=== PATIENT | female | born 2005 | race Caucasian/White ===

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

== ENCOUNTER 2023-06-03 19:21 | Emergency (ER) | payer BC, SELFPAY ==
[2023-06-03 19:30] VITALS: BP 140/93; PULSE 81; RESP 20; TEMP 37.1; O2SAT 97; BMI 24.8
--- NOTE | 2023-06-03 19:43 | EXP.UTC ---
Discharge Plan Disposition Patient Disposition: Home, Self-Care Condition: Good Prescriptions Prescriptions: New azithromycin [Zithromax Z-Rohan] 250 mg tablet See Rx Instructions .ROUTE .COMPLEX 5 Days Qty: 6 0RF Rx Instructions: For 250 mg dose pack: take 500 mg today (day 1), then 250 mg for 4 days (days 2-5) methylprednisolone [Medrol (Rohan)] 4 mg tablets,dose pack See Rx Instructions .Route .COMPLEX 6 Days Qty: 21 0RF Rx Instructions: taper pack; No Action medroxyprogesterone 150 mg/mL suspension 1 mg IM ONCE Patient Comments: INJECT 1 ML INTRAMUSCULARLY EVERY 3 MONTHS FOR 90 DAYS Referrals Follow up/Referrals: Chris Keene [Primary Care Provider] - See instructions Activity Restrictions/Add. Instructions Additional Instructions/Restrictions: *Monitor Temp, Over the counter Motrin or Tylenol as directed/as needed Tylenol every 4 hours and Motrin every 6 hours (as long as your family doctor has told you that you can take it) for fever or pain. and straight to ER if unable to lower temp less than 101.0 after medication given *Warm salt water gargles may help to soothe the throat *Throat Lozenges? *Warm fluids like tea with honey may help to soothe the throat? *Sleep elevated *Humidifier/Vaporizer Take medication as prescribed Your throat swab was sent for culture. Those results are typically sent to your primary care. Be sure to follow up in 2-3 days with your family doctor/primary care physician if no improvement so they can review those result and treat if necessary. If you don?t have a primary care doctor, I recommend you get one but in the mean time, you will have to return to a walk in clinic Follow up IMMEDIATELY for new or worsening symptoms or no Noticeable improvement over the next 48-72 hours. 911 for difficulty breathing or swallowing Clinical Impressions Clinical Impression: Pharyngitis Qualifiers: Pharyngitis/tonsillitis etiology: unspecified etiology Qualified Code(s): J02.9 - Acute pharyngitis, unspecified Instructions Patient Instructions: Sore Throat, DI for Headache Discharge ED Provider: Vika Stovall [facility] General Stated complaint: sore throat Mode of Arrival: Ambulatory Source of Information: Patient Limitations: No Limitations Time Seen by Provider: 06/03/23 19:43 Description of Symptoms (Recalled from Triage Doc. by RN): PATIENT C/O SORE THROAT, BODY ACHES, LOSING VOICE, SWOLLEN THROAT THAT STARTED LAST SUNDAY HEENT Symptoms (Recalled from RN notes): Yes Resp Symptoms (Recalled from RN notes): No Skin Symptoms (Recalled from RN notes): No MS Symptoms (Recalled from RN notes): No Functional Status (Recalled from RN notes): WNL History of Present Illness Provider Complaint: Patient states that she started getting sick last week and has continued to get worse States that her throat is very sore, hurts when she swallows, swollen lymph nodes body aches and loss her voice State that today she was feeling worse so she came in to get checked Related Data Home Medications Medication Instructions Recorded Confirmed medroxyprogesterone 150 mg/mL 1 mg IM ONCE Control 06/03/23 06/03/23 intramuscular suspension Previous Rx's Medication Instructions Recorded azithromycin 250 mg tablet See Rx Instructions PO .COMPLEX 5 06/03/23 (Zithromax Z-Rohan) days #6 tabs methylprednisolone 4 mg tablets in See Rx Instructions .Route 06/03/23 a dose pack (Medrol (Rohan)) .COMPLEX 6 days #21 tabs Allergies Allergy/AdvReac Type Severity Reaction Status Date / Time No Known Allergies Allergy Verified 11/03/19 16:28 Worker's Comp Is this a Worker's Comp case?: No [facility] Disclaimer: The information contained in this section may have been updated after the patient was seen, as this information can be updated by other users. Medical History (Updated 06/03/23 @ 20:10 by Vika Stovall APRN) Maria C
[2023-06-03 20:03] LABS: UTC Influenza A Antigen Negative (Negative)
[2023-06-03 20:04] LABS: UTC Influenza B Antigen Negative (Negative)
[2023-06-03 20:04] LABS: UTC Strep Screen (Rapid) Negative (Negative)
[2023-06-03 20:04] LABS: Monoscreen (Rapid) Negative (Negative)
[2023-06-03 20:10] VITALS: BP 140/93; PULSE 81; RESP 20; TEMP 37.1; O2SAT 97
== END 2023-06-03 20:12 | disposition home or self-care (01) ==
PROVIDERS: Emergency Provider Nurse Practitioner; PCP Pediatrics
DX: J02.9 Acute pharyngitis, unspecified (principal); F41.9 Anxiety disorder, unspecified
CPT/HCPCS: 86318; 87804; 87880; 99212; 99214; G0463

== ENCOUNTER 2023-07-08 18:18 | Emergency (ER) | payer BC, SELFPAY ==
[2023-07-08 18:19] VITALS: BP 141/85; PULSE 94; RESP 18; TEMP 37.4; O2SAT 98; BMI 24.7
--- NOTE | 2023-07-08 18:27 | EXP.UTC ---
Discharge Plan Disposition Patient Disposition: Home, Self-Care Condition: Good Prescriptions Prescriptions: New chhewbrrvmpnfgp-ewfpvztkb-SC [Bromfed DM] 2-30-10 mg/5 mL Syrup 5 ml PO Q6H PRN (Reason: Cough) Qty: 240 0RF ondansetron 4 mg Tablet,Disintegrating 4 mg PO Q8H PRN (Reason: Nausea) Qty: 12 0RF No Action medroxyprogesterone 150 mg/mL suspension 1 mg IM ONCE Patient Comments: INJECT 1 ML INTRAMUSCULARLY EVERY 3 MONTHS FOR 90 DAYS azithromycin [Zithromax Z-Rohan] 250 mg tablet See Rx Instructions .ROUTE .COMPLEX 5 Days Qty: 6 0RF Rx Instructions: For 250 mg dose pack: take 500 mg today (day 1), then 250 mg for 4 days (days 2-5) methylprednisolone [Medrol (Rohan)] 4 mg tablets,dose pack See Rx Instructions .Route .COMPLEX 6 Days Qty: 21 0RF Rx Instructions: taper pack; Referrals Follow up/Referrals: Chris Keene [Primary Care Provider] - See instructions Clinical Impressions Clinical Impression: COVID-19 Stand Alone Forms Stand Alone Forms: Work/School Release Instructions Patient Instructions: Coronavirus Disease 2019, Preventing the Spread of Coronavirus Discharge Instructions Discharge ED Provider: Noe Adams [facility] General Stated complaint: test positive @ home, cough, weakness, congestion Time Seen by Provider: 07/08/23 18:27 History of Present Illness Provider Complaint: She is here to have a pcr covid-19 test. She had a positive home covid-19 test today. She states that she started feeling bad yesterday. She denies any shortness of breath. Related Data Home Medications Medication Instructions Recorded Confirmed medroxyprogesterone 150 mg/mL 1 mg IM ONCE Control 06/03/23 06/03/23 intramuscular suspension Previous Rx's Medication Instructions Recorded azithromycin 250 mg tablet See Rx Instructions PO .COMPLEX 5 06/03/23 (Zithromax Z-Rohan) days #6 tabs methylprednisolone 4 mg tablets in See Rx Instructions .Route 06/03/23 a dose pack (Medrol (Rohan)) .COMPLEX 6 days #21 tabs fuybnzjqfmhcwid-bogmepodnbdbwav-KZ 5 ml PO Q6H PRN Cough #240 mL 07/08/23 2 mg-30 mg-10 mg/5 mL oral syrup (Bromfed DM) ondansetron 4 mg disintegrating 4 mg PO Q8H PRN Nausea #12 tabs 07/08/23 tablet Allergies Allergy/AdvReac Type Severity Reaction Status Date / Time No Known Allergies Allergy Verified 07/08/23 18:30 [facility] Disclaimer: The information contained in this section may have been updated after the patient was seen, as this information can be updated by other users. Medical History (Updated 07/08/23 @ 18:52 by Noe Adams APRN) Anxiety Social History Smoking Status: Never smoker alcohol intake: never current occupational status: student Travel in the last 8 weeks: None household members: family housing: house ROS Obtained: Yes All systems reviewed & no additional complaints except as documented Constitutional Constitutional: Reports chills and Reports fever(s) Eyes Eyes: Denies eye discharge ENT Ears, Nose, Mouth, and Throat: Reports as per HPI Cardiovascular Cardiovascular: Denies chest pain Respiratory Respiratory: Denies chest congestion and Reports cough Gastrointestinal Gastrointestingal: Reports nausea; Denies abdominal pain, constipation, cramping, diarrhea or vomiting Musculoskeletal Musculoskeletal: Denies arthralgias Integumentary/Breasts Skin/Breast: Denies rash Neurologic Neurologic: Denies paresthesias Physical Exam General General appearance: alert and in no apparent distress Head Head exam: atraumatic, normocephalic and normal inspection Eye Eye exam: Present normal appearance, PERRL and EOMI ENT ENT exam: Present normal exam, normal oropharynx, mucous membranes moist, TM's normal bilaterally and normal external ear exam Neck Neck exam: Present normal inspection, full ROM and trachea midline; Absent meningismus or lymphaden
[2023-07-08 18:56] VITALS: BP 141/85; PULSE 94; RESP 18; TEMP 37.4; O2SAT 98
== END 2023-07-08 18:56 | disposition home or self-care (01) ==
PROVIDERS: Emergency Provider Nurse Practitioner Family; PCP Pediatrics
DX: U07.1 COVID-19 (principal); F41.9 Anxiety disorder, unspecified
CPT/HCPCS: 99212; 99214; G0463

== ENCOUNTER 2023-07-23 18:48 | Emergency (ER) | payer BC, SELFPAY ==
[2023-07-23 19:05] VITALS: BP 145/84; PULSE 80; RESP 18; TEMP 37.3; O2SAT 98; BMI 29.0
--- NOTE | 2023-07-23 19:18 | EXP.UTC ---
Discharge Plan Disposition Patient Disposition: Home, Self-Care Condition: Good Prescriptions Prescriptions: New ondansetron 4 mg tablet,disintegrating 4 mg PO Q8H PRN (Reason: nausea and vomiting) Qty: 10 0RF Referrals Follow up/Referrals: Chris Keene [Primary Care Provider] - See instructions Activity Restrictions/Add. Instructions Additional Instructions/Restrictions: Drink extra fluids with and between meals. If you have difficulty drinking, try very small amounts of water or suck on ice chips. ? Avoid fruit juices, as these do not replace minerals and can actually increase diarrhea. ? Children and adults can use sports drinks to replenish electrolytes. Younger children and infants should use products formulated for children, like oral rehydration solutions. ? Eat food in small amounts and let your stomach recover. ? Get lots of rest. You may feel tired or weak. ? No greasy or fried foods for the next 24-48 hours BRAT diet Bananas Rice Apples and [place] ? Make sure to drink plenty of liquids ? Return if needed ? Straight to ER if any life threatening symptoms ? Zofran as prescribed ? Follow up with family doctor in the next 48-72 hours if no improvement or any worsening of symptoms Clinical Impressions Clinical Impression: Nausea & vomiting Qualifiers: Vomiting type: unspecified Qualified Code(s): R11.2 - Nausea with vomiting, unspecified Stand Alone Forms Stand Alone Forms: Work/School Release Instructions Patient Instructions: Nausea and Vomiting-Adult, Ondansetron Discharge ED Provider: Vika Stovall [facility] General Stated complaint: nausea Mode of Arrival: Ambulatory Source of Information: Patient Limitations: No Limitations Time Seen by Provider: 07/23/23 19:19 Description of Symptoms (Recalled from Triage Doc. 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, strep and stomach bug States that this morning she woke feeling achy, chills and N/V States that this evening she wasnt feeling any better so she came in to get checked Related Data Previous Rx's Medication Instructions Recorded ondansetron 4 mg disintegrating 4 mg PO Q8H PRN nausea and 07/23/23 tablet vomiting #10 tabs Allergies Allergy/AdvReac Type Severity Reaction Status Date / Time No Known Allergies Allergy Verified 07/08/23 18:30 Worker's Comp Is this a Worker's Comp case?: No [facility] Disclaimer: The information contained in this section may have been updated after the patient was seen, as this information can be updated by other users. Medical History (Updated 07/23/23 @ 19:42 by Vika Stovall APRN) Anxiety Social History Smoking Status: Never smoker alcohol intake: never current occupational status: student Travel in the last 8 weeks: None household members: family housing: house ROS Obtained: Yes All systems reviewed & no additional complaints except as documented and Yes Systems reviewed as appropriate & no additional complaints except as documented Constitutional Constitutional: Reports system reviewed and no additional complaints, except as documented, Reports as per HPI, Reports body ache, Reports chills and Reports fever(s) ENT Ears, Nose, Mouth, and Throat: Reports system reviewed and no additional complaints, except as documented and Reports as per HPI Cardiovascular Cardiovascular: Reports system reviewed and no additional complaints, except as documented and Re
[2023-07-23 19:25] LABS: UTC Influenza A Antigen Negative (Negative)
[2023-07-23 19:25] LABS: UTC Pregnancy Test, Urine Negative (Negative)
[2023-07-23 19:26] LABS: UTC Influenza B Antigen Negative (Negative)
[2023-07-23 19:33] VITALS: BP 145/84; PULSE 80; RESP 18; TEMP 37.3; O2SAT 98
== END 2023-07-23 19:36 | disposition home or self-care (01) ==
PROVIDERS: Emergency Provider Nurse Practitioner; PCP Pediatrics
DX: R11.2 Nausea with vomiting, unspecified (principal); R50.9 Fever, unspecified; F41.9 Anxiety disorder, unspecified
CPT/HCPCS: 81025; 87804; 99212; 99214; G0463

== ENCOUNTER 2023-08-12 11:35 | Emergency (ER) | payer BC, SELFPAY ==
[2023-08-12 11:45] VITALS: BP 117/74; PULSE 85; RESP 18; TEMP 37; O2SAT 100; BMI 26.9
[2023-08-12 11:58] LABS: UTC Strep Screen (Rapid) Negative (Negative)
--- NOTE | 2023-08-12 12:04 | EXP.UTC ---
Discharge Plan Disposition Patient Disposition: Home, Self-Care Condition: Good Prescriptions Prescriptions: New pseudoephedrine HCl [Sudafed 12 Hour] 120 mg tablet extended release 120 mg PO Q12H PRN (Reason: nasal congestion) Qty: 20 0RF fluticasone propionate [Flonase Allergy Relief] 50 mcg/actuation spray,suspension 1 - 2 spray intranasal DAILY Qty: 16 0RF Rx Instructions: administer into each nostril daily Referrals Follow up/Referrals: Chris Keene [Primary Care Provider] - See instructions Activity Restrictions/Add. Instructions Additional Instructions/Restrictions: *Monitor Temp, Over the counter Motrin or Tylenol as directed/as needed Tylenol every 4 hours and Motrin every 6 hours (as long as your family doctor has told you that you can take it) for fever or pain. and straight to ER if unable to lower temp less than 101.0 after medication given *Warm salt water gargles may help to soothe the throat *Throat Lozenges? *Warm fluids like tea with honey may help to soothe the throat? *Sleep elevated *Humidifier/Vaporizer *Flonase 2 sprays in each nostril daily but be aware that it may take 2-3 days before you notice improvement Your throat swab was sent for culture. Those results are typically sent to your primary care. Be sure to follow up in 2-3 days with your family doctor/primary care physician if no improvement so they can review those result and treat if necessary. If you don?t have a primary care doctor, I recommend you get one but in the mean time, you will have to return to a walk in clinic Follow up IMMEDIATELY for new or worsening symptoms or no Noticeable improvement over the next 48-72 hours. 911 for difficulty breathing or swallowing Clinical Impressions Clinical Impression: URI (upper respiratory infection) Qualifiers: URI type: unspecified URI Qualified Code(s): J06.9 - Acute upper respiratory infection, unspecified Instructions Patient Instructions: Sore Throat, DI for Nasal Congestion Discharge ED Provider: Vika Stovall [facility] General Stated complaint: sore throat, h/a Mode of Arrival: Ambulatory Source of Information: Patient Limitations: No Limitations Time Seen by Provider: 08/12/23 12:04 Description of Symptoms (Recalled from Triage Doc. by RN): PATIENT STATES SHE WAS TREATED FOR STREP THROAT LAST WEEK WITH AMOXICILLIN BUT C/O WORSENING SYMPTOMS HEENT Symptoms (Recalled from RN notes): Yes Resp Symptoms (Recalled from RN notes): No Skin Symptoms (Recalled from RN notes): No MS Symptoms (Recalled from RN notes): No Functional Status (Recalled from RN notes): WNL History of Present Illness Provider Complaint: Patient states that she tested positive for strep throat last week States that she has been taking her antibiotics but her sore throat has continued to get worse States that today she was sounding hoarse so she came back in to get checked again doesnt think the medication is working Related Data Previous Rx's Medication Instructions Recorded fluticasone propionate 50 1 - 2 spray intranasal DAILY #16 08/12/23 mcg/actuation nasal grams spray,suspension (Flonase Allergy Relief) pseudoephedrine HCl 120 mg 120 mg PO Q12H PRN nasal 08/12/23 tablet,extended release (Sudafed congestion #20 tabs 12 Hour) Allergies Allergy/AdvReac Type Severity Reaction Status Date / Time No Known Allergies Allergy Verified 07/08/23 18:30 Worker's Comp Is this a Worker's Comp case?: No [facility] Disclaimer: The information contained in this section may have been updated after the patient was seen, as this information can be updated by other users. Medical History (Updated 08/12/23 @ 12:43 by Vika Stovall APRN) Anxiety Social History Smoking Status: Never smoker alcohol intake: never current occupational status: student Travel in the last 8 weeks: None hous
[2023-08-12 12:23] VITALS: BP 117/74; PULSE 85; RESP 18; TEMP 37; O2SAT 100
[2023-08-12 12:34] LABS: Monoscreen (Rapid) Negative (Negative)
== END 2023-08-12 12:45 | disposition home or self-care (01) ==
PROVIDERS: Emergency Provider Nurse Practitioner; PCP Pediatrics
DX: J06.9 Acute upper respiratory infection, unspecified (principal); F41.9 Anxiety disorder, unspecified
CPT/HCPCS: 86318; 87880; 99212; 99214; G0463

== ENCOUNTER 2023-10-09 12:27 | Emergency (ER) | payer BC, SELFPAY ==
--- NOTE | 2023-10-09 13:53 | EXP.UTC ---
Discharge Plan Disposition Patient Disposition: Home, Self-Care Condition: Good Prescriptions Prescriptions: New prednisone 10 mg tablet 10 mg PO BID 5 Days Qty: 10 0RF alzrbjesithtiyt-pdrtukcip-IJ [Bromfed DM] 2-30-10 mg/5 mL Syrup 5 ml PO Q6H PRN (Reason: Cough) Qty: 240 0RF cefdinir 300 mg capsule 300 mg PO BID Qty: 20 0RF Referrals Follow up/Referrals: Galen Duron MD [Primary Care Provider] - See instructions Activity Restrictions/Add. Instructions Additional Instructions/Restrictions: Drink plenty of fluids. Take tylenol or ibuprofen for pain or fever. Take the medications as directed. Follow up with your regular doctor. GO TO THE ER FOR ANY WORSENING SYMPTOMS Clinical Impressions Clinical Impression: Acute viral syndrome, Sinusitis Stand Alone Forms Stand Alone Forms: Work/School Release Instructions Patient Instructions: DI for Sinusitis, DI for Viral Syndrome Discharge ED Provider: Noe Adams [facility] General Stated complaint: sore throat,headache,body aches, Time Seen by Provider: 10/09/23 13:53 History of Present Illness Provider Complaint: She states that for the past 3 days she has had chills, sore throat, sinus congestion and chest congestion. Related Data Previous Rx's Medication Instructions Recorded nzrpptsorelgrra-ianjppvwgokogph-KI 5 ml PO Q6H PRN Cough #240 mL 10/09/23 2 mg-30 mg-10 mg/5 mL oral syrup (Bromfed DM) cefdinir 300 mg capsule 300 mg PO BID #20 caps 10/09/23 prednisone 10 mg tablet 10 mg PO BID 5 days #10 tabs 10/09/23 Allergies Allergy/AdvReac Type Severity Reaction Status Date / Time No Known Allergies Allergy Verified 10/09/23 14:10 [facility] Disclaimer: The information contained in this section may have been updated after the patient was seen, as this information can be updated by other users. Medical History (Updated 10/09/23 @ 14:16 by Noe Adams APRN) Anxiety Social History Smoking Status: Never smoker alcohol intake: never current occupational status: student Travel in the last 8 weeks: None household members: family housing: house ROS Obtained: Yes All systems reviewed & no additional complaints except as documented Constitutional Constitutional: Reports chills and Reports fever(s) Eyes Eyes: Denies eye discharge ENT Ears, Nose, Mouth, and Throat: Reports as per HPI Cardiovascular Cardiovascular: Denies chest pain Respiratory Respiratory: Denies shortness of breath, Reports chest congestion, Reports cough, Denies stridor and Denies wheezing Gastrointestinal Gastrointestingal: Reports nausea; Denies abdominal pain, constipation, cramping, diarrhea or vomiting Musculoskeletal Musculoskeletal: Denies arthralgias Integumentary/Breasts Skin/Breast: Denies rash Neurologic Neurologic: Denies paresthesias Allergic/Immunologic Allergic/Immunologic: Denies wheezing Physical Exam General General appearance: alert and in no apparent distress Head Head exam: atraumatic, normocephalic and normal inspection Eye Eye exam: Present normal appearance, PERRL and EOMI ENT ENT exam: Present mucous membranes moist and normal external ear exam Expanded ENT Exam TM/Canal exam: Bilateral TM: erythema and bulging Nose exam: Absent sinus tenderness Mouth exam: Present normal external inspection; Absent drooling Teeth exam: Present normal inspection Throat exam: Present tonsillar erythema, tonsillomegaly and tonsillar exudate Neck Neck exam: Present normal inspection, full ROM and trachea midline; Absent tenderness, meningismus or lymphadenopathy Chest Chest inspection: Present normal inspection and symmetric chest wall rise; Absent tenderness Respiratory Respiratory exam: Present normal lung sounds bilaterally; Absent respiratory distress, wheezes or stridor Cardiovascular Cardiovascular exam: Present regular rate and normal rhythm; Absent systolic mu
[2023-10-09 13:55] VITALS: BP 129/79; PULSE 64; RESP 18; TEMP 36.8; O2SAT 99; BMI 24.0
[2023-10-09 14:21] LABS: UTC Influenza A Antigen Negative (Negative); UTC Strep Screen (Rapid) Negative (Negative)
[2023-10-09 14:22] LABS: UTC Influenza B Antigen Negative (Negative)
[2023-10-09 14:26] VITALS: BP 129/79; PULSE 64; RESP 18; TEMP 36.8; O2SAT 99
[2023-10-09 14:32] LABS: Adenovirus,PCR Not Detected (NotDetected); Coronavirus 19, PCR Not Detected (NotDetected); Coronavirus 229E Not Detected (NotDetected); Coronavirus NL63 Not Detected (NotDetected); Coronovirus HKU1,PCR Not Detected (NotDetected); Human Metapneumovirus Not Detected (NotDetected); Influenza A, PCR Not Detected (NotDetected); Influenza AH1, 2009 Not Detected (NotDetected); Influenza AH1, PCR Not Detected (NotDetected); Influenza AH3,PCR Not Detected (NotDetected); Influenza B, PCR Not Detected (NotDetected); Parainfluenza 1, PCR Not Detected (NotDetected); Parainfluenza 2, PCR Not Detected (NotDetected); Parainfluenza 4, PCR Not Detected (NotDetected); Respiratory Syncytial Virus Not Detected (NotDetected); Rhinovirus/Enterovirus Not Detected (NotDetected)
[2023-10-09 20:34] LABS: Coronavirus OC43 Detected (NotDetected); Parainfluenza 3, PCR Detected (NotDetected)
== END 2023-10-09 14:26 | disposition home or self-care (01) ==
PROVIDERS: Emergency Provider Nurse Practitioner Family; PCP Family Medicine
DX: J01.90 Acute sinusitis, unspecified (principal); B34.2 Coronavirus infection, unspecified; R51.9 Headache, unspecified; R07.0 Pain in throat; R05.9 Cough, unspecified; R09.81 Nasal congestion; R09.89 Other specified symptoms and signs involving the circulatory and respiratory systems; R68.83 Chills (without fever)
CPT/HCPCS: 87632; 87635; 87804; 87880; 99212; 99214; G0463

== ENCOUNTER 2023-12-09 09:28 | Emergency (ER) | payer BC, SELFPAY ==
[2023-12-09 09:34] VITALS: BMI 24.7
--- NOTE | 2023-12-09 09:35 | XR_ITS ---
PROCEDURE INFORMATION: Exam: XR Right Hand Exam date and time: 12/09/2023 9:39 AM Age: 18 years old Clinical indication: Pain and injury or trauma; Other: Mech bull riding mis hap; Blunt trauma (contusions or hematomas); Right; Finger(s) and hand; Additional info: Pain. Swelling and bruising on 4th digit TECHNIQUE: Imaging protocol: Radiologic exam of the right hand. Views: 3 or more views. COMPARISON: No relevant prior studies available. FINDINGS: Bones/joints: Normal. Soft tissues: Normal. IMPRESSION: No acute findings.
[2023-12-09 09:37] VITALS: BP 129/92; PULSE 89; RESP 18; TEMP 36.7; O2SAT 98; BMI 24.7
--- NOTE | 2023-12-09 09:37 | ED_ITS ---
Discharge Plan Disposition Patient Disposition: Home, Self-Care Condition: Good Prescriptions Prescriptions: New ibuprofen [IBU] 800 mg tablet 800 mg PO Q8HP PRN (Reason: Moderate Pain) Qty: 30 0RF No Action prednisone 10 mg tablet 10 mg PO BID 5 Days Qty: 10 0RF avqwvcehyymsvia-oacajmqba-YD [Bromfed DM] 2-30-10 mg/5 mL Syrup 5 ml PO Q6H PRN (Reason: Cough) Qty: 240 0RF cefdinir 300 mg capsule 300 mg PO BID Qty: 20 0RF Referrals Follow up/Referrals: Galen Duron MD [Primary Care Provider] - See instructions Aki Joseph DO [Staff Physician] - See instructions Activity Restrictions/Add. Instructions Additional Instructions/Restrictions: Rest the extremity, Elevate the extremity as tolerated while you are resting. Take ibuprofen for pain. I sent in a prescription to your pharmacy. Follow up with Dr. Joseph (orthopedics) if you continue to have symptoms. I put in a referral but you need to call his office and schedule an appointment. Follow up with your regular doctor. GO TO THE ER FOR ANY WORSENING SYMPTOMS Clinical Impressions Clinical Impression: Other sprain of right middle finger, initial encounter Stand Alone Forms Stand Alone Forms: Work/School Release Instructions Patient Instructions: Finger Sprain, DI for Finger Sprain Discharge ED Provider: Noe Adams [facility] General Stated complaint: AO 2 right ring finger swelling bruising pain Time Seen by Provider: 12/09/23 09:37 History of Present Illness Provider Complaint: She states that she got her right hand hung in the reins on a mechanical bull yesterday. She has had right middle finger pain, swelling and bruising since then. She denies any other injury. Related Data Previous Rx's Medication Instructions Recorded wtdpkisylxoaytw-obkjfptpvqvwwht-TG 5 ml PO Q6H PRN Cough #240 mL 10/09/23 2 mg-30 mg-10 mg/5 mL oral syrup (Bromfed DM) cefdinir 300 mg capsule 300 mg PO BID #20 caps 10/09/23 prednisone 10 mg tablet 10 mg PO BID 5 days #10 tabs 10/09/23 ibuprofen 800 mg tablet (IBU) 800 mg PO Q8HP PRN Moderate Pain 12/09/23 #30 tabs Allergies Allergy/AdvReac Type Severity Reaction Status Date / Time No Known Allergies Allergy Verified 10/09/23 14:10 [facility] Disclaimer: The information contained in this section may have been updated after the patient was seen, as this information can be updated by other users. Medical History (Updated 12/09/23 @ 10:40 by Noe Adams APRN) Anxiety Social History Smoking Status: Never smoker alcohol intake: never current occupational status: student Travel in the last 8 weeks: None household members: family housing: house ROS Obtained: Yes All systems reviewed & no additional complaints except as documented Constitutional Constitutional: Denies chills and Denies fever(s) Eyes Eyes: Denies eye discharge ENT Ears, Nose, Mouth, and Throat: Denies dizziness, Denies otalgia and Denies sore throat Cardiovascular Cardiovascular: Denies chest pain Respiratory Respiratory: Denies shortness of breath, Denies chest congestion, Denies cough, Denies stridor and Denies wheezing Gastrointestinal Gastrointestingal: Denies nausea or vomiting Musculoskeletal Musculoskeletal: Reports as per HPI Integumentary/Breasts Skin/Breast: Denies rash Neurologic Neurologic: Denies dizziness and Denies paresthesias Allergic/Immunologic Allergic/Immunologic: Denies wheezing Physical Exam General General appearance: alert and in no apparent distress Head Head exam: atraumatic, normocephalic and normal inspection Eye Eye exam: Present normal appearance, PERRL and EOMI ENT ENT exam: Present normal exam, normal oropharynx, mucous membranes moist, TM's normal bilaterally and normal external ear exam Neck Neck exam: Present normal inspection, full ROM and trachea midline; Absent meningismus or lymphadenopathy Chest Chest inspection: Present normal inspection and symmetric chest wall rise; Absent tenderness Respiratory Respiratory exam: Present normal lung sounds bilaterally; Absent respiratory distress Cardiovascular Cardiovascular exam: Present regular rate and normal rhythm; Absent JVD Abdominal Exam Abdominal exam: Present soft and normal bowel sounds; Absent distention, tenderness or guarding Extremities Exam Extremities exam: Present normal capillary refill; Absent calf tenderness Expanded Upper Extremity Exam Right: Elbow exam: Present normal inspection and full ROM; Absent tenderness, pain w/ pronation/supination or tenderness over radial head Forearm/Wrist exam: Present normal inspection and full ROM; Absent tenderness, tenderness over anatomical snuff box or pain with axial thumb loading Hand exam: Present tenderness, swelling and ecchymosis; Absent full ROM, abrasion, laceration, skin avulsion, deformity, crepitus, dislocation, erythema, amputation, nail avulsion or subungual hematoma Neuromotor exam: Normal wrist extension, thumb opposition, thumb IP flexion, thumb adduction and fingers 2-5 abduction Neurosensory exam: Normal radial nerve, ulnar nerve and median nerve Vascular exam: Normal capillary refill Back Exam Back exam: Present normal inspection; Absent tenderness Neurological Exam Neurological exam: Present alert and oriented X3 Psychiatric Psychiatric exam: Present normal affect and normal mood Skin Skin exam: Present warm, dry, intact and normal color Lymphatic Lymphatic Findings: no adenopathy Medical Decision Making Alexis Inquiry Pt receiving controlled substance: No Orders (Tests/Meds): ORDERS Category Date Time Status Hand XR right minimum 3 views [XR hand RT min 3V] Stat Exams 12/09/23 09:35 Ordered Procedures Risk/Benefits of Procedure(s) Were Explained: Yes Orthopedic Splinting/Casting Injury #1: Side: right Upper Extremity Injury Location: finger (middle) Upper Extremity Immobilizer: aluminum form splint and applied by nurse/dr cannon Post Cast/Splinting Neuro Status: intact and no change Post Cast/Splinting Vasc Status: intact and no change
[2023-12-09 10:42] VITALS: BP 129/92; PULSE 89; RESP 18; TEMP 36.7; O2SAT 98
== END 2023-12-09 10:42 | disposition home or self-care (01) ==
PROVIDERS: Emergency Provider Nurse Practitioner Family; PCP Family Medicine
DX: S63.692A Other sprain of right middle finger, initial encounter (principal); W23.2XXA Caught, crushed, jammed or pinched between a moving and stationary object, initial encounter
CPT/HCPCS: 73130; 99212; 99214; G0463

== ENCOUNTER 2024-01-10 18:25 | Emergency (ER) | payer BC, SELFPAY ==
[2024-01-10 18:35] VITALS: BP 138/73; PULSE 77; RESP 20; TEMP 36.8; O2SAT 96; BMI 24.5
--- NOTE | 2024-01-10 18:41 | ED_ITS ---
Discharge Plan Disposition Patient Disposition: Home, Self-Care Condition: Good Prescriptions Prescriptions: New azithromycin [Zithromax] 250 mg tablet 250 mg PO UD DOSE PK Qty: 6 0RF Rx Instructions: Take two (2) tablets today, then one (1) tablet days #2 thru #5 cqsdorpwfqscgoy-rsvszpmax-LP [Bromfed DM] 2-30-10 mg/5 mL Syrup 5 ml PO Q6H PRN (Reason: Cough) Qty: 240 0RF ondansetron 4 mg Tablet,Disintegrating 4 mg PO Q8H PRN (Reason: Nausea) Qty: 8 0RF Referrals Follow up/Referrals: Galen Duron MD [Primary Care Provider] - See instructions Activity Restrictions/Add. Instructions Additional Instructions/Restrictions: Drink plenty of fluids. Take tylenol or ibuprofen for pain or fever. Take the medications as directed. Follow up with your regular doctor. GO TO THE ER FOR ANY WORSENING SYMPTOMS Clinical Impressions Clinical Impression: Acute viral syndrome Pharyngitis Qualifiers: Pharyngitis/tonsillitis etiology: unspecified etiology Qualified Code(s): J02.9 - Acute pharyngitis, unspecified Stand Alone Forms Stand Alone Forms: Work/School Release Instructions Patient Instructions: Sore Throat, DI for Pharyngitis/Tonsillopharyngitis -- Adult, DI for Viral Syndrome Discharge ED Provider: Noe Adams [facility] General Stated complaint: sore throat, ear ache APPIAH Time Seen by Provider: 01/10/24 18:41 History of Present Illness Provider Complaint: She states that since last night she has had a very sore throat, dry cough, low grade fever and malaise. 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 Related Data Previous Rx's Medication Instructions Recorded azithromycin 250 mg tablet 250 mg PO UD DOSE PK #6 tabs 01/10/24 (Zithromax) cwgxaqbvuthbqcm-ddwvckofcuzezht-HA 5 ml PO Q6H PRN Cough #240 mL 01/10/24 2 mg-30 mg-10 mg/5 mL oral syrup (Bromfed DM) ondansetron 4 mg disintegrating 4 mg PO Q8H PRN Nausea #8 tabs 01/10/24 tablet Allergies Allergy/AdvReac Type Severity Reaction Status Date / Time No Known Allergies Allergy Verified 10/09/23 14:10 [facility] Disclaimer: The information contained in this section may have been updated after the patient was seen, as this information can be updated by other users. Medical History (Updated 01/10/24 @ 19:12 by Noe Adams APRN) Anxiety Social History Smoking Status: Never smoker alcohol intake: never current occupational status: student Travel in the last 8 weeks: None household members: family housing: house ROS Obtained: Yes All systems reviewed & no additional complaints except as documented Constitutional Constitutional: Reports chills and Reports fever(s) Eyes Eyes: Denies eye discharge ENT Ears, Nose, Mouth, and Throat: Reports as per HPI Cardiovascular Cardiovascular: Denies chest pain Respiratory Respiratory: Denies chest congestion and Reports cough Gastrointestinal Gastrointestingal: Reports nausea; Denies abdominal pain, constipation, crampin g, diarrhea or vomiting Musculoskeletal Musculoskeletal: Denies arthralgias Integumentary/Breasts Skin/Breast: Denies rash Neurologic Neurologic: Denies paresthesias Physical Exam General General appearance: alert and in no apparent distress Head Head exam: atraumatic, normocephalic and normal inspection Eye Eye exam: Present normal appearance, PERRL and EOMI ENT ENT exam: Present mucous membranes moist and normal external ear exam Expanded ENT Exam TM/Canal exam: Bilateral TM: erythema and bulging Nose exam: Absent sinus tenderness Mouth exam: Present normal external inspection; Absent drooling Teeth exam: Present normal inspection Throat exam: Present tonsillar erythema, tonsillomegaly and tonsillar exudate Neck Neck exam: Present normal inspection, full ROM and trachea midline; Absent tenderness, meningismus or lymphadenopathy Chest Chest inspection: Present normal inspection and symmetric chest wall rise; Absent tenderness Respiratory Respiratory exam: Present normal lung sounds bilaterally; Absent respiratory distress, wheezes, stridor or accessory muscle use Cardiovascular Cardiovascular exam: Present regular rate and normal rhythm; Absent systolic murmur or diastolic murmur Abdominal Exam Abdominal exam: Present soft and normal bowel sounds; Absent distention, tenderness, guarding, rebound or rigidity Extremities Exam Extremities exam: Present normal inspection and normal capillary refill; Absent calf tenderness Back Exam Back exam: Present normal inspection and full ROM; Absent tenderness, CVA tenderness (R) or CVA tenderness (L) Neurological Exam Neurological exam: Present alert, oriented X3 and CN II-XII intact Psychiatric Psychiatric exam: Present normal affect and normal mood Skin Skin exam: Present warm, dry, intact and normal color Medical Decision Making Medical Records Medical records reviewed: No I reviewed the patient's medical records. Alexis Inquiry Pt receiving controlled substance: No Lab Data Lab results reviewed: Yes I reviewed the patient's lab results.
[2024-01-10 18:52] VITALS: BP 138/73; PULSE 77; RESP 20; TEMP 36.8; O2SAT 96
[2024-01-10 19:09] LABS: UTC Strep Screen (Rapid) Negative (Negative)
[2024-01-10 19:10] LABS: UTC Influenza A Antigen Negative (Negative); UTC Influenza B Antigen Negative (Negative)
[2024-01-10 19:20] LABS: Adenovirus,PCR Not Detected (NotDetected); Coronavirus 19, PCR Not Detected (NotDetected); Coronavirus 229E Not Detected (NotDetected); Coronavirus OC43 Not Detected (NotDetected); Coronovirus HKU1,PCR Not Detected (NotDetected); Human Metapneumovirus Not Detected (NotDetected); Influenza A, PCR Not Detected (NotDetected); Influenza AH1, 2009 Not Detected (NotDetected); Influenza AH1, PCR Not Detected (NotDetected); Influenza AH3,PCR Not Detected (NotDetected); Influenza B, PCR Not Detected (NotDetected); Parainfluenza 1, PCR Not Detected (NotDetected); Parainfluenza 2, PCR Not Detected (NotDetected); Parainfluenza 3, PCR Not Detected (NotDetected); Parainfluenza 4, PCR Not Detected (NotDetected); Respiratory Syncytial Virus Not Detected (NotDetected); Rhinovirus/Enterovirus Not Detected (NotDetected)
[2024-01-10 21:22] LABS: Coronavirus NL63 Detected (NotDetected)
== END 2024-01-10 19:16 | disposition home or self-care (01) ==
PROVIDERS: Emergency Provider Nurse Practitioner Family; PCP Family Medicine
DX: J02.9 Acute pharyngitis, unspecified (principal); B34.9 Viral infection, unspecified; R51.9 Headache, unspecified; R05.9 Cough, unspecified; R50.9 Fever, unspecified; R53.81 Other malaise
CPT/HCPCS: 87632; 87635; 87804; 87880; 99212; 99214; G0463

== ENCOUNTER 2024-02-28 10:46 | Emergency (ER) | payer BC, SELFPAY ==
[2024-02-28 10:55] VITALS: BP 135/75; PULSE 97; RESP 18; TEMP 36.9; O2SAT 99; BMI 27.9
--- NOTE | 2024-02-28 11:06 | EXP.UTC ---
Discharge Plan Disposition Patient Disposition: Home, Self-Care Condition: Good Prescriptions Prescriptions: New amoxicillin 875 mg tablet 875 mg PO Q12H Qty: 20 0RF No Action medroxyprogesterone 150 mg/mL suspension 150 mg IM ONCE Patient Comments: INJECT 1 ML INTRAMUSCULARLY EVERY 3 MONTHS FOR 90 DAYS Referrals Follow up/Referrals: Chris Keene [Primary Care Provider] - See instructions Activity Restrictions/Add. Instructions Additional Instructions/Restrictions: *Monitor Temp, Over the counter Motrin or Tylenol as directed/as needed Tylenol every 4 hours and Motrin every 6 hours (as long as your family doctor has told you that you can take it) for fever or pain. and straight to ER if unable to lower temp less than 101.0 after medication given *Warm salt water gargles may help to soothe the throat *Throat Lozenges? *Warm fluids like tea with honey may help to soothe the throat? *Sleep elevated *Humidifier/Vaporizer Your throat swab was sent for culture. Those results are typically sent to your primary care. Be sure to follow up in 2-3 days with your family doctor/primary care physician if no improvement so they can review those result and treat if necessary. If you don?t have a primary care doctor, I recommend you get one but in the mean time, you will have to return to a walk in clinic Follow up IMMEDIATELY for new or worsening symptoms or no Noticeable improvement over the next 48-72 hours. 911 for difficulty breathing or swallowing Clinical Impressions Clinical Impression: Strep throat Stand Alone Forms Stand Alone Forms: Work/School Release Instructions Patient Instructions: DI for Strep Throat, Strep Throat Discharge ED Provider: Vika Stovall [facility] [place] General Stated complaint: body aches, low fever, headache, sore throat Mode of Arrival: Ambulatory Source of Information: Patient Limitations: No Limitations Time Seen by Provider: 02/28/24 11:06 Description of Symptoms (Recalled from Triage Doc. 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, flu along with mulitple other viruses that is going around States today she was still feeling achy all over and her nasal congestion and sore throat was hurting worse so she came in to get get checked Related Data Home Medications Medication Instructions Recorded Confirmed medroxyprogesterone 150 mg/mL 150 mg IM ONCE 02/28/24 02/28/24 intramuscular suspension Previous Rx's Medication Instructions Recorded amoxicillin 875 mg tablet 875 mg PO Q12H #20 tabs 02/28/24 Allergies Allergy/AdvReac Type Severity Reaction Status Date / Time No Known Allergies Allergy Verified 10/09/23 14:10 Worker's Comp Is this a Worker's Comp case?: No [facility] [place] Disclaimer: The information contained in this section may have been updated after the patient was seen, as this information can be updated by other users. Medical History (Updated 02/28/24 @ 11:16 by Vika Stovall APRN) Anxiety Surgical History (Updated 02/28/24 @ 11:03 by Amber Zepeda RN) History of tonsillectomy Social History Smoking Status: Never smoker alcohol intake: never current occupational status: student Travel in the last 8 weeks: None household members: family housing: house ROS Obtained: Yes All systems reviewed & no additional complaints except as documented and Yes Systems reviewed as appropriate & no additional complaints except as documented Constitutional Constitutional: Reports system reviewed and no additional complaints, except as documented, Reports as per HPI, Reports body ache, Reports chills and Reports fever(s) ENT Ears, Nose, Mouth, and Throat: Reports system reviewed and no additional complaints, except as documented, Reports as per HPI, Reports nasal congestion, Reports nasal discharge and Reports sore throat Cardiovascular Cardiovascular: Reports system reviewed and no additional complaints, except as documented and Reports as per HPI Respiratory Respiratory: Reports system reviewed and no additional complaints, except as documented and Reports as per HPI Gastrointestinal Gastrointestingal: Reports system reviewed and no additional complaints, except as documented and as per HPI Physical Exam General General appearance: alert and in no apparent distress ENT ENT exam: Present mucous membranes moist Expanded ENT Exam Nose exam: Absent sinus tenderness Throat exam: Present other (Pharyngeal erythema noted with PND) Respiratory Respiratory exam: Present normal lung sounds bilaterally; Absent respiratory distress or wheezes Cardiovascular Cardiovascular exam: Present regular rate, normal rhythm and normal heart sounds Abdominal Exam Abdominal exam: Present soft and normal bowel sounds; Absent distention or tenderness Neurological Exam Neurological exam: Present alert, oriented X3 and normal gait Medical Decision Making Alexis Inquiry Pt receiving controlled substance: No Alexis was queried for this patient: No Vital Signs: 02/28/24 10:55 Temperature 98.4 F Temperature Source Oral Pulse Rate [Left Brachial] 97 H Respiratory Rate 18 Blood Pressure [Left Arm] 135/75 Blood Pressure Mean [Left Arm] 95 Blood Pressure Source [Left Arm] Automatic Cuff Blood Pressure Position [Left Arm] Sitting 02 Sat by Pulse Oximetry 99 Oxygen Delivery Method Room Air Lab Data Lab results reviewed: Yes I reviewed the patient's lab results.
[2024-02-28 11:16] LABS: UTC Influenza A Antigen Negative (Negative); UTC Influenza B Antigen Negative (Negative); UTC Strep Screen (Rapid) Positive (Negative)
[2024-02-28 11:18] VITALS: BP 135/75; PULSE 97; RESP 18; TEMP 36.9; O2SAT 99
== END 2024-02-28 11:20 | disposition home or self-care (01) ==
PROVIDERS: Emergency Provider Nurse Practitioner; PCP Pediatrics
DX: J02.0 Streptococcal pharyngitis (principal); R07.0 Pain in throat; R50.9 Fever, unspecified; R51.9 Headache, unspecified
CPT/HCPCS: 87804; 87880; 99212; 99214; G0463

== ENCOUNTER 2024-03-31 10:30 | Emergency (ER) | payer BC, SELFPAY ==
[2024-03-31 11:10] VITALS: BP 126/78; PULSE 75; RESP 18; TEMP 37.3; O2SAT 98; BMI 24.5
[2024-03-31 11:27] LABS: UTC Strep Screen (Rapid) Positive (Negative)
--- NOTE | 2024-03-31 11:37 | EXP.UTC ---
Discharge Plan Disposition Patient Disposition: Home, Self-Care Condition: Good Prescriptions Prescriptions: New cefdinir 300 mg capsule 300 mg PO Q12H Qty: 20 0RF No Action medroxyprogesterone 150 mg/mL suspension 150 mg IM ONCE Patient Comments: INJECT 1 ML INTRAMUSCULARLY EVERY 3 MONTHS FOR 90 DAYS Referrals Follow up/Referrals: Chris Keene [Primary Care Provider] - See instructions Clinical Impressions Clinical Impression: Strep throat Instructions Patient Instructions: DI for Strep Throat Discharge ED Provider: Lydia Wilson [facility] [place] HPI General Stated complaint: cough headache bodyache nausea congestion runny no Mode of Arrival: Ambulatory Source of Information: Patient Limitations: No Limitations Time Seen by Provider: 03/31/24 11:24 Description of Symptoms (Recalled from Triage Doc. by RN): PATIENT C/O COUGH, SORE THROAT, HEADACHE, BODY ACHES, AND RUNNY NOSE SINCE SUNDAY HEENT Symptoms (Recalled from RN notes): Yes Resp Symptoms (Recalled from RN notes): Yes Skin Symptoms (Recalled from RN notes): No MS Symptoms (Recalled from RN notes): No Functional Status (Recalled from RN notes): WNL History of Present Illness Provider Complaint: Pt states that she has had a cough, runny nose, and sore throat since Sunday. She has been taking Bromfed for her symptoms. Related Data Home Medications Medication Instructions Recorded Confirmed medroxyprogesterone 150 mg/mL 150 mg IM ONCE 02/28/24 03/31/24 intramuscular suspension Previous Rx's Medication Instructions Recorded cefdinir 300 mg capsule 300 mg PO Q12H #20 caps 03/31/24 Allergies Allergy/AdvReac Type Severity Reaction Status Date / Time No Known Allergies Allergy Verified 10/09/23 14:10 Worker's Comp Is this a Worker's Comp case?: No [facility] Disclaimer: The information contained in this section may have been updated after the patient was seen, as this information can be updated by other users. Medical History (Updated 03/31/24 @ 11:40 by Lydia Wilson APRN) Anxiety Surgical History (Updated 02/28/24 @ 11:03 by Amber Zepeda RN) History of tonsillectomy Social History Smoking Status: Never smoker alcohol intake: never current occupational status: student Travel in the last 8 weeks: None household members: family housing: house ROS Obtained: Yes All systems reviewed & no additional complaints except as documented Constitutional Constitutional: Reports system reviewed and no additional complaints, except as documented, Reports body ache, Reports headache(s) and Reports malaise Eyes Eyes: Reports system reviewed and no additional complaints, except as documented ENT Ears, Nose, Mouth, and Throat: Reports system reviewed and no additional complaints, except as documented, Reports headache(s), Reports nasal congestion, Reports nasal discharge, Reports odynophagia and Reports sore throat Cardiovascular Cardiovascular: Reports system reviewed and no additional complaints, except as documented Respiratory Respiratory: Reports system reviewed and no additional complaints, except as documented and Reports non-productive cough Gastrointestinal Gastrointestingal: Reports system reviewed and no additional complaints, except as documented and odynophagia Genitourinary Female Genitourinary: Reports system reviewed and no additional complaints, except as documented Musculoskeletal Musculoskeletal: Reports system reviewed and no additional complaints, except as documented Integumentary/Breasts Skin/Breast: Reports system reviewed and no additional complaints, except as documented Neurologic Neurologic: Reports system reviewed and no additional complaints, except as documented and Reports headache(s) Endocrine Endocrine: Reports system reviewed and no additional complaints, except as documented Hematologic/Lymphatic Henatologic/Lymphatic: Reports system reviewed and no additional complaints, except as documented Allergic/Immunologic Allergic/Immunologic: Reports system reviewed and no additional complaints, except as documented Physical Exam General General appearance: alert and in no apparent distress Head Head exam: atraumatic and normocephalic Eye Eye exam: Present normal appearance Expanded ENT Exam External ear exam: Present normal external inspection Nasal speculum exam: Bilateral: other (clear drainage) Mouth exam: Present normal external inspection Teeth exam: Present normal inspection Comment: absent tonsils. soft palate petechia. Neck Neck exam: Present normal inspection Chest Chest inspection: Present normal inspection and symmetric chest wall rise Respiratory Respiratory exam: Present normal lung sounds bilaterally Cardiovascular Cardiovascular exam: Present regular rate and normal rhythm Abdominal Exam Abdominal exam: Present soft and normal bowel sounds Extremities Exam Extremities exam: Present normal inspection Back Exam Back exam: Present normal inspection Neurological Exam Neurological exam: Present alert and oriented X3 Psychiatric Psychiatric exam: Present normal affect and normal mood Skin Skin exam: Present warm, dry and intact Lymphatic Lymphatic Findings: no adenopathy Medical Decision Making Alexis Inquiry Pt receiving controlled substance: No Alexis was queried for this patient: No Vital Signs: 03/31/24 11:10 Temperature 99.2 F Temperature Source Oral Pulse Rate [Left Brachial] 75 Respiratory Rate 18 Blood Pressure [Left Arm] 126/78 Blood Pressure Mean [Left Arm] 94 Blood Pressure Source [Left Arm] Automatic Cuff Blood Pressure Position [Left Arm] Sitting 02 Sat by Pulse Oximetry 98 Oxygen Delivery Method Room Air Lab Data Lab results reviewed: Yes I reviewed the patient's lab results. Lab Results 03/31/24 11:17: Strep Scn Rapid Clinic Positive A
[2024-03-31 11:45] VITALS: BP 126/78; PULSE 75; RESP 18; TEMP 37.3; O2SAT 98
== END 2024-03-31 11:50 | disposition home or self-care (01) ==
PROVIDERS: Emergency Provider Nurse Practitioner Family; PCP Pediatrics
DX: J02.0 Streptococcal pharyngitis (principal); R07.0 Pain in throat; R05.9 Cough, unspecified; R09.81 Nasal congestion
CPT/HCPCS: 87880; 99212; 99214; G0463

== ENCOUNTER 2024-04-29 18:38 | Emergency (ER) | payer BC, SELFPAY ==
[2024-04-29 18:50] VITALS: BP 144/79; PULSE 88; RESP 20; TEMP 36.9; O2SAT 97; BMI 25.0
[2024-04-29 19:04] LABS: UTC Strep Screen (Rapid) Positive (Negative)
--- NOTE | 2024-04-29 19:16 | EXP.UTC ---
Discharge Plan Disposition Patient Disposition: Home, Self-Care Condition: Good Prescriptions Prescriptions: New azithromycin 500 mg tablet 500 mg PO DAILY 5 Days Qty: 5 0RF No Action medroxyprogesterone 150 mg/mL suspension 150 mg IM Q3M Patient Comments: INJECT 1 ML INTRAMUSCULARLY EVERY 3 MONTHS FOR 90 DAYS Referrals Follow up/Referrals: Galen Duron MD [Primary Care Provider] - See instructions Activity Restrictions/Add. Instructions Additional Instructions/Restrictions: Change toothbrush after 2 days. Take antibiotic as prescribed. Increase fluids and rest. If symptoms persist or worsen return to clinic or go to PCP. Clinical Impressions Clinical Impression: Strep throat Stand Alone Forms Stand Alone Forms: Work/School Release Instructions Patient Instructions: DI for Strep Throat Discharge ED Provider: Lydia Wilson [facility] [place] General Stated complaint: sore throat Mode of Arrival: Ambulatory Source of Information: Patient Limitations: No Limitations Time Seen by Provider: 04/29/24 19:00 Description of Symptoms (Recalled from Triage Doc. by RN): PATIENT C/O SORE THROAT, HEADACHE, AND EAR ACHE THAT STARTED TODAY HEENT Symptoms (Recalled from RN notes): Yes Resp Symptoms (Recalled from RN notes): No Skin Symptoms (Recalled from RN notes): No MS Symptoms (Recalled from RN notes): No Functional Status (Recalled from RN notes): WNL History of Present Illness Provider Complaint: Pt complains of sore throat, headache, and bilateral ear ache. She reports getting strep often with the last time being 3 weeks ago. She reports that the amoxicillin does not seem to be working for her anymore. Related Data Home Medications Medication Instructions Recorded Confirmed medroxyprogesterone 150 mg/mL 150 mg IM Q3M 04/29/24 04/29/24 intramuscular suspension Previous Rx's Medication Instructions Recorded azithromycin 500 mg tablet 500 mg PO DAILY 5 days #5 tabs 04/29/24 Allergies Allergy/AdvReac Type Severity Reaction Status Date / Time No Known Allergies Allergy Verified 10/09/23 14:10 Worker's Comp Is this a Worker's Comp case?: No [facility] Disclaimer: The information contained in this section may have been updated after the patient was seen, as this information can be updated by other users. Medical History (Updated 04/29/24 @ 19:20 by Lydia Wilson APRN) Anxiety Surgical History (Updated 02/28/24 @ 11:03 by Amber Zepeda RN) History of tonsillectomy Social History Smoking Status: Never smoker alcohol intake: never current occupational status: student Travel in the last 8 weeks: None household members: family housing: house ROS Obtained: Yes All systems reviewed & no additional complaints except as documented Constitutional Constitutional: Reports system reviewed and no additional complaints, except as documented, Reports headache(s) and Reports malaise Eyes Eyes: Reports system reviewed and no additional complaints, except as documented ENT Ears, Nose, Mouth, and Throat: Reports system reviewed and no additional complaints, except as documented, Reports otalgia, Reports headache(s), Reports odynophagia and Reports sore throat Cardiovascular Cardiovascular: Reports system reviewed and no additional complaints, except as documented Respiratory Respiratory: Reports system reviewed and no additional complaints, except as documented Gastrointestinal Gastrointestingal: Reports system reviewed and no additional complaints, except as documented and odynophagia Genitourinary Female Genitourinary: Reports system reviewed and no additional complaints, except as documented Musculoskeletal Musculoskeletal: Reports system reviewed and no additional complaints, except as documented Integumentary/Breasts Skin/Breast: Reports system reviewed and no additional complaints, except as documented Neurologic Neurologic: Reports system reviewed and no additional complaints, except as documented and Reports headache(s) Endocrine Endocrine: Reports system reviewed and no additional complaints, except as documented Hematologic/Lymphatic Henatologic/Lymphatic: Reports system reviewed and no additional complaints, except as documented Allergic/Immunologic Allergic/Immunologic: Reports system reviewed and no additional complaints, except as documented Physical Exam General General appearance: alert Comment: ill appearing Head Head exam: atraumatic and normocephalic Eye Eye exam: Present normal appearance Expanded ENT Exam External ear exam: Present normal external inspection Nasal speculum exam: Bilateral: normal Mouth exam: Present normal external inspection Teeth exam: Present normal inspection Comment: tonsils absent. Soft palate red. Neck Neck exam: Present lymphadenopathy Chest Chest inspection: Present normal inspection and symmetric chest wall rise Respiratory Respiratory exam: Present normal lung sounds bilaterally Cardiovascular Cardiovascular exam: Present regular rate, normal rhythm and normal heart sounds Abdominal Exam Abdominal exam: Present soft and normal bowel sounds Extremities Exam Extremities exam: Present normal inspection Back Exam Back exam: Present normal inspection Neurological Exam Neurological exam: Present alert and oriented X3 Psychiatric Psychiatric exam: Present normal affect and normal mood Skin Skin exam: Present warm, dry and intact Lymphatic Lymphatic Findings: no adenopathy Medical Decision Making Alexis Inquiry Pt receiving controlled substance: No Alexis was queried for this patient: No Vital Signs: 04/29/24 18:50 Temperature 98.5 F Temperature Source Oral Pulse Rate [Left Brachial] 88 Respiratory Rate 20 Blood Pressure [Left Arm] 144/79 H Blood Pressure Mean [Left Arm] 100 Blood Pressure Source [Left Arm] Automatic Cuff Blood Pressure Position [Left Arm] Sitting 02 Sat by Pulse Oximetry 97 Oxygen Delivery Method Room Air Lab Data Lab results reviewed: Yes I reviewed the patient's lab results. Lab Results 04/29/24 18:49: Strep Scn Rapid Clinic Positive A
[2024-04-29 19:20] VITALS: BP 144/79; PULSE 88; RESP 20; TEMP 36.9; O2SAT 97
== END 2024-04-29 19:23 | disposition home or self-care (01) ==
PROVIDERS: Emergency Provider Nurse Practitioner Family; PCP Family Medicine
DX: J02.0 Streptococcal pharyngitis (principal); R51.9 Headache, unspecified; H92.03 Otalgia, bilateral; R07.0 Pain in throat
CPT/HCPCS: 87880; 99212; 99214; G0463

== ENCOUNTER 2024-06-10 18:22 | Emergency (ER) | payer BC, SELFPAY ==
[2024-06-10 18:30] VITALS: BP 137/80; PULSE 82; RESP 20; TEMP 37.4; O2SAT 99; BMI 24.7
--- NOTE | 2024-06-10 18:47 | EXP.UTC ---
Discharge Plan Disposition Patient Disposition: Home, Self-Care Condition: Good Prescriptions Prescriptions: New azithromycin [Zithromax Z-Rohan] 250 mg tablet See Rx Instructions .ROUTE .COMPLEX 5 Days Qty: 6 0RF Rx Instructions: For 250 mg dose pack: take 500 mg today (day 1), then 250 mg for 4 days (days 2-5) methylprednisolone [Medrol (Rohan)] 4 mg tablets,dose pack See Rx Instructions .Route .COMPLEX 6 Days Qty: 21 0RF Rx Instructions: taper pack; [id number]-[id number] [Bromfed DM] 2-30-10 mg/5 mL syrup 10 ml PO Q6H PRN (Reason: cold symptoms) Qty: 200 0RF Referrals Follow up/Referrals: Galen Duron MD [Primary Care Provider] - See instructions Activity Restrictions/Add. Instructions Additional Instructions/Restrictions: *Monitor Temp, Over the counter Motrin or Tylenol as directed/as needed Tylenol every 4 hours and Motrin every 6 hours (as long as your family doctor has told you that you can take it) for fever or pain. and straight to ER if unable to lower temp less than 101.0 after medication given *Warm salt water gargles may help to soothe the throat *Throat Lozenges? *Warm fluids like tea with honey may help to soothe the throat? *Sleep elevated *Humidifier/Vaporizer Take medication as prescribed Your throat swab was sent for culture. Those results are typically sent to your primary care. Be sure to follow up in 2-3 days with your family doctor/primary care physician if no improvement so they can review those result and treat if necessary. If you don?t have a primary care doctor, I recommend you get one but in the mean time, you will have to return to a walk in clinic Follow up IMMEDIATELY for new or worsening symptoms or no Noticeable improvement over the next 48-72 hours. 911 for difficulty breathing or swallowing Clinical Impressions Clinical Impression: Pharyngitis Instructions Patient Instructions: Sore Throat, Acute Bronchitis Print Language Print Language: [place] Discharge ED Provider: Vika Stovall [facility] [place] General Stated complaint: SOA Mode of Arrival: Ambulatory Source of Information: Patient Limitations: No Limitations Time Seen by Provider: 06/10/24 18:47 Description of Symptoms (Recalled from Triage Doc. by RN): PATIENT C/O SOA, COUGH, CHEST CONGESTION, AND SORE THROAT HEENT Symptoms (Recalled from RN notes): Yes Resp Symptoms (Recalled from RN notes): Yes Skin Symptoms (Recalled from RN notes): No MS Symptoms (Recalled from RN notes): No Functional Status (Recalled from RN notes): WNL History of Present Illness Provider Complaint: Patient states she has been sick for about 2 weeks States she went to [facility] in [place] and was dx with viral infection States that she has continued to get worse states that she is having sore throat, drainage in the back of her throat, burning and tightness in her chest when she coughs, and at times feels SOA States today she wasnt feeling any better and worried that she may have bronchitis or something so she came in denies cp and no known fever Related Data Previous Rx's ?Medication ?Instructions ?Recorded azithromycin 250 mg tablet See Rx Instructions PO .COMPLEX 5 06/10/24 (Zithromax Z-Rohan) days #6 tabs afdkstqyidopfua-wwnsfakwzyhcgqq-SM 10 ml PO Q6H PRN cold symptoms 06/10/24 2 mg-30 mg-10 mg/5 mL oral syrup #200 mL (Bromfed DM) methylprednisolone 4 mg tablets in See Rx Instructions .Route 06/10/24 a dose pack (Medrol (Rohan)) .COMPLEX 6 days #21 tabs Allergies Allergy/AdvReac Type Severity Reaction Status Date / Time No Known Allergies Allergy Verified 10/09/23 14:10 Worker's Comp Is this a Worker's Comp case?: No [facility] Disclaimer: The information contained in this section may have been updated after the patient was seen, as this information can be updated by other users. Medical History (Updated 06/10/24 @ 18:55 by Vika Stovall APRN) Anxiety Surgical History (Updated 02/28/24 @ 11:03 by Amber Zepeda RN) History of tonsillectomy Social History Smoking Status: Never smoker alcohol intake: never current occupational status: student Travel in the last 8 weeks: None household members: family housing: house ROS Obtained: Yes All systems reviewed & no additional complaints except as documented and Yes Systems reviewed as appropriate & no additional complaints except as documented Constitutional Constitutional: Reports system reviewed and no additional complaints, except as documented, Reports as per HPI and Reports body ache Eyes Eyes: Reports system reviewed and no additional complaints, except as documented and Reports as per HPI ENT Ears, Nose, Mouth, and Throat: Reports system reviewed and no additional complaints, except as documented, Reports as per HPI, Reports nasal congestion and Reports sore throat Cardiovascular Cardiovascular: Reports system reviewed and no additional complaints, except as documented, Reports as per HPI and Denies chest pain Respiratory Respiratory: Reports system reviewed and no additional complaints, except as documented, Reports as per HPI, Reports shortness of breath, Reports chest congestion and Reports cough Physical Exam General General appearance: alert and in no apparent distress ENT ENT exam: Present mucous membranes moist Expanded ENT Exam Nose exam: Absent sinus tenderness Throat exam: Present other (Pharyngeal erythema noted with PND) Chest Chest inspection: Present normal inspection and symmetric chest wall rise Respiratory Respiratory exam: Present normal lung sounds bilaterally; Absent respiratory distress or wheezes Cardiovascular Cardiovascular exam: Present regular rate, normal rhythm and normal heart sounds Neurological Exam Neurological exam: Present alert, oriented X3 and normal gait Medical Decision Making Alexis Inquiry Pt receiving controlled substance: No Alexis was queried for this patient: No Vital Signs: 06/10/24 18:30 Temperature 99.4 F Temperature Source Oral Pulse Rate [Left Brachial] 82 Respiratory Rate 20 Blood Pressure [Left Arm] 137/80 Blood Pressure Mean [Left Arm] 99 Blood Pressure Source [Left Arm] Automatic Cuff Blood Pressure Position [Left Arm] Sitting 02 Sat by Pulse Oximetry 99 Oxygen Delivery Method Room Air Lab Data Lab results reviewed: Yes I reviewed the patient's lab results. Medical Decision Narrative: Denies chance of states last period 2 weeks ago
[2024-06-10 18:56] LABS: UTC Strep Screen (Rapid) Negative (Negative)
[2024-06-10 18:57] VITALS: BP 137/80; PULSE 82; RESP 20; TEMP 37.4; O2SAT 99
== END 2024-06-10 19:03 | disposition home or self-care (01) ==
PROVIDERS: Emergency Provider Nurse Practitioner; PCP Family Medicine
DX: J02.9 Acute pharyngitis, unspecified (principal); R06.02 Shortness of breath; R09.82 Postnasal drip; R05.9 Cough, unspecified
CPT/HCPCS: 87880; 99212; 99214; G0463

== ENCOUNTER 2024-07-10 14:45 | Emergency (ER) | payer BC, SELFPAY ==
--- NOTE | 2024-07-10 15:27 | EXP.UTC ---
Discharge Plan Disposition Patient Disposition: Home, Self-Care Condition: Good Prescriptions Prescriptions: New amoxicillin 875 mg tablet 875 mg PO Q12H Qty: 20 0RF vyvpboevqiztmev-xjvkkgkwx-TK [Bromfed DM] 2-30-10 mg/5 mL Syrup 5 ml PO Q6H PRN (Reason: Cough) Qty: 240 0RF No Action azithromycin [Zithromax Z-Rohan] 250 mg tablet See Rx Instructions .ROUTE .COMPLEX 5 Days Qty: 6 0RF Rx Instructions: For 250 mg dose pack: take 500 mg today (day 1), then 250 mg for 4 days (days 2-5) methylprednisolone [Medrol (Rohan)] 4 mg tablets,dose pack See Rx Instructions .Route .COMPLEX 6 Days Qty: 21 0RF Rx Instructions: taper pack; accwsiaekbofnch-ecwricohe-IN [Bromfed DM] 2-30-10 mg/5 mL syrup 10 ml PO Q6H PRN (Reason: cold symptoms) Qty: 200 0RF Referrals Follow up/Referrals: Galen Duron MD [Primary Care Provider] - See instructions Activity Restrictions/Add. Instructions Additional Instructions/Restrictions: Drink plenty of fluids. Take tylenol or ibuprofen for pain or fever. Take the medications as directed. Follow up with your regular doctor. GO TO THE ER FOR ANY WORSENING SYMPTOMS Clinical Impressions Clinical Impression: Pharyngitis Qualifiers: Pharyngitis/tonsillitis etiology: unspecified etiology Qualified Code(s): J02.9 - Acute pharyngitis, unspecified Stand Alone Forms Stand Alone Forms: Work/School Release Instructions Patient Instructions: DI for Pharyngitis/Tonsillopharyngitis -- Adult Print Language Print Language: Icelandic Discharge ED Provider: Noe Adams [facility] General Stated complaint: sore throat Time Seen by Provider: 07/10/24 15:27 Related Data Previous Rx's ?Medication ?Instructions ?Recorded azithromycin 250 mg tablet See Rx Instructions PO .COMPLEX 5 06/10/24 (Zithromax Z-Rohan) days #6 tabs pdstzwgiapbtabh-ozjunyvlcjjexpv-RP 10 ml PO Q6H PRN cold symptoms 06/10/24 2 mg-30 mg-10 mg/5 mL oral syrup #200 mL (Bromfed DM) methylprednisolone 4 mg tablets in See Rx Instructions .Route 06/10/24 a dose pack (Medrol (Rohan)) .COMPLEX 6 days #21 tabs amoxicillin 875 mg tablet 875 mg PO Q12H #20 tabs 07/10/24 obnvgtqcicarmqe-nrerfarkbqfpgqt-GH 5 ml PO Q6H PRN Cough #240 mL 07/10/24 2 mg-30 mg-10 mg/5 mL oral syrup (Bromfed DM) Allergies Allergy/AdvReac Type Severity Reaction Status Date / Time No Known Allergies Allergy Verified 10/09/23 14:10 [facility] Disclaimer: The information contained in this section may have been updated after the patient was seen, as this information can be updated by other users. Medical History (Updated 07/10/24 @ 16:07 by Noe Adams APRN) Anxiety Surgical History (Updated 02/28/24 @ 11:03 by Amber Zepeda RN) History of tonsillectomy Social History Smoking Status: Never smoker alcohol intake: never current occupational status: student Travel in the last 8 weeks: None household members: family housing: house ROS Obtained: Yes All systems reviewed & no additional complaints except as documented Constitutional Constitutional: Reports chills and Reports fever(s) Eyes Eyes: Denies eye discharge ENT Ears, Nose, Mouth, and Throat: Reports as per HPI Cardiovascular Cardiovascular: Denies chest pain Respiratory Respiratory: Denies chest congestion and Reports cough Gastrointestinal Gastrointestingal: Reports nausea; Denies abdominal pain, constipation, cramping, diarrhea or vomiting Musculoskeletal Musculoskeletal: Denies arthralgias Integumentary/Breasts Skin/Breast: Denies rash Neurologic Neurologic: Denies paresthesias Physical Exam General General appearance: alert and in no apparent distress Head Head exam: atraumatic, normocephalic and normal inspection Eye Eye exam: Present normal appearance, PERRL and EOMI ENT ENT exam: Present mucous membranes moist and normal external ear exam Expanded ENT Exam TM/Canal exam: Bilateral TM: erythema and bulging Nose exam: Absent sinus tenderness Mouth exam: Present normal external inspection; Absent drooling Teeth exam: Present normal inspection Throat exam: Present tonsillar erythema, tonsillomegaly and tonsillar exudate Neck Neck exam: Present normal inspection, full ROM and trachea midline; Absent tenderness, meningismus or lymphadenopathy Chest Chest inspection: Present normal inspection and symmetric chest wall rise; Absent tenderness Respiratory Respiratory exam: Present normal lung sounds bilaterally; Absent respiratory distress, wheezes, stridor or accessory muscle use Cardiovascular Cardiovascular exam: Present regular rate and normal rhythm; Absent systolic murmur or diastolic murmur Abdominal Exam Abdominal exam: Present soft and normal bowel sounds; Absent distention, tenderness, guarding, rebound or rigidity Extremities Exam Extremities exam: Present normal inspection and normal capillary refill; Absent calf tenderness Back Exam Back exam: Present normal inspection and full ROM; Absent tenderness, CVA tenderness (R) or CVA tenderness (L) Neurological Exam Neurological exam: Present alert, oriented X3 and CN II-XII intact Psychiatric Psychiatric exam: Present normal affect and normal mood Skin Skin exam: Present warm, dry, intact and normal color Medical Decision Making Medical Records Medical records reviewed: No I reviewed the patient's medical records. Alexis Inquiry Pt receiving controlled substance: No Lab Data Lab results reviewed: Yes I reviewed the patient's lab results.
[2024-07-10 15:28] VITALS: BP 128/66; PULSE 77; RESP 18; TEMP 37.2; O2SAT 99; BMI 24.5
[2024-07-10 15:37] LABS: UTC Strep Screen (Rapid) Negative (Negative)
[2024-07-10 16:09] VITALS: BP 128/66; PULSE 77; RESP 18; TEMP 37.2; O2SAT 99
== END 2024-07-10 16:10 | disposition home or self-care (01) ==
PROVIDERS: Emergency Provider Nurse Practitioner Family; PCP Family Medicine
DX: J02.9 Acute pharyngitis, unspecified (principal); R50.9 Fever, unspecified
CPT/HCPCS: 87880; 99212; 99214; G0463

== ENCOUNTER 2024-11-29 18:16 | Emergency (ER) | payer SELFPAY ==
[2024-11-29 18:25] VITALS: BP 135/86; PULSE 128; RESP 19; TEMP 37.6; O2SAT 98; BMI 25.2
--- NOTE | 2024-11-29 18:32 | EXP.UTC ---
Discharge Plan Disposition Patient Disposition: Home, Self-Care Condition: Good Prescriptions Prescriptions: No Action No Known Home Medications Referrals Follow up/Referrals: Galen Duron MD [Primary Care Provider] - See instructions Activity Restrictions/Add. Instructions Additional Instructions/Restrictions: *Monitor Temp, Over the counter Motrin or Tylenol as directed/as needed Tylenol every 4 hours and Motrin every 6 hours (as long as your family doctor has told you that you can take it) for fever or pain. and straight to ER if unable to lower temp less than 101.0 after medication given *Warm salt water gargles may help to soothe the throat *Throat Lozenges? *Warm fluids like tea with honey may help to soothe the throat? *Sleep elevated *Humidifier/Vaporizer Your throat swab was sent for culture. Those results are typically sent to your primary care. Be sure to follow up in 2-3 days with your family doctor/primary care physician if no improvement so they can review those result and treat if necessary. If you don?t have a primary care doctor, I recommend you get one but in the mean time, you will have to return to a walk in clinic Follow up IMMEDIATELY for new or worsening symptoms or no Noticeable improvement over the next 48-72 hours. 911 for difficulty breathing or swallowing You were tested for today for Mini Respiratory Panel that includes COVID19, Influenza A&B, RhinoVirus and RSV your test result should be back in the next few hours, and your result be available on the [facility] portal Clinical Impressions Clinical Impression: Acute viral syndrome Instructions Patient Instructions: Sore Throat, DI for Fever (Symptom) -- Adult Print Language Print Language: Sinhala Discharge ED Provider: Vika Stovall [facility] HPI General Stated complaint: Sore throat,bvody aches,fatique Mode of Arrival: Ambulatory Source of Information: Patient Limitations: No Limitations Time Seen by Provider: 11/29/24 18:32 Description of Symptoms (Recalled from Triage Doc. by RN): PATIENT C/O SORE THROAT, BODY ACHES, FATIGUE, AND FEVER HEENT Symptoms (Recalled from RN notes): Yes Resp Symptoms (Recalled from RN notes): No Skin Symptoms (Recalled from RN notes): No MS Symptoms (Recalled from RN notes): No Functional Status (Recalled from RN notes): WNL History of Present Illness Provider Complaint: Patient states that for the last couple of days she has been having sore throat, headache, body aches, fatigue and fever States today she was still not feeling any better so she came in after she found out she has been exposed to Flu COVID and Strep throat Related Data Home Medications ?Medication ?Instructions ?Recorded ?Confirmed No Known Home Medications 11/29/24 11/29/24 Allergies Allergy/AdvReac Type Severity Reaction Status Date / Time No Known Allergies Allergy Verified 10/09/23 14:10 Worker's Comp Is this a Worker's Comp case?: No [facility] Disclaimer: The information contained in this section may have been updated after the patient was seen, as this information can be updated by other users. Medical History (Updated 11/29/24 @ 19:06 by Vika Stovall APRN) Anxiety Surgical History (Updated 02/28/24 @ 11:03 by Amber Zepeda RN) History of tonsillectomy Social History Smoking Status: Never smoker alcohol intake: never current occupational status: student Travel in the last 8 weeks: None household members: family housing: house Have you lived/traveled outside US in past 30 days?: No Contact w/someone who lives/traveled outside US past 30 days?: No Exposure to someone with infectious disease in past 14 days?: Yes Do you have a fever (greater than 100.4 F or 38 C)?: No Have you tested positive for COVID-19: No Exposed to someone with COVID-19 in past 14 days?: No Do you have a sore throat?: Yes Do you have a cough?: Yes Do you have any weakness?: No Do you have any diarrhea?: No Are you experiencing any unusual bleeding?: No Do you have any muscle aches/pain?: Yes Do you have any abdominal pain?: No Are you experiencing loss of taste or smell?: No ROS Obtained: Yes All systems reviewed & no additional complaints except as documented and Yes Systems reviewed as appropriate & no additional complaints except as documented Constitutional Constitutional: Reports system reviewed and no additional complaints, except as documented, Reports as per HPI, Reports body ache, Reports chills, Reports fever(s) and Reports headache(s) ENT Ears, Nose, Mouth, and Throat: Reports system reviewed and no additional complaints, except as documented, Reports as per HPI, Reports headache(s), Reports nasal congestion and Reports sore throat Cardiovascular Cardiovascular: Reports system reviewed and no additional complaints, except as documented and Reports as per HPI Respiratory Respiratory: Reports system reviewed and no additional complaints, except as documented and Reports as per HPI Neurologic Neurologic: Reports headache(s) Physical Exam General General appearance: alert and in no apparent distress ENT ENT exam: Present mucous membranes moist and TM's normal bilaterally Expanded ENT Exam Nose exam: Absent sinus tenderness Throat exam: Present other (Pharyngeal erythema noted ) Respiratory Respiratory exam: Present normal lung sounds bilaterally; Absent respiratory distress or wheezes Cardiovascular Cardiovascular exam: Present regular rate, normal rhythm and tachycardia Neurological Exam Neurological exam: Present alert, oriented X3 and normal gait Medical Decision Making Medical Records Screening: Per USPSTF and CDC recommendations, given the prevalence of disease in our region, it is our hospital?s policy to screen for HIV and viral Hepatitis for all patients aged 18 and over and those with ongoing risk factors. Alexis Inquiry Pt receiving controlled substance: No Alexis was queried for this patient: No Vital Signs: 11/29/24 18:25 Temperature 99.6 F Temperature Source Oral Pulse Rate [Left Brachial] 128 H Respiratory Rate 19 Blood Pressure [Left Arm] 135/86 Blood Pressure Mean [Left Arm] 102 Blood Pressure Source [Left Arm] Automatic Cuff Blood Pressure Position [Left Arm] Sitting 02 Sat by Pulse Oximetry 98 Oxygen Delivery Method Room Air Lab Data Lab results reviewed: Yes I reviewed the patient's lab results. Medical Decision Narrative: Patient requesting to be tested for [place] and COVID also therefore will do mini respiratory panel and draw mono
[2024-11-29 18:44] LABS: UTC Strep Screen (Rapid) Negative (Negative)
[2024-11-29 18:45] LABS: UTC Influenza A Antigen Negative (Negative); UTC Influenza B Antigen Negative (Negative)
[2024-11-29 19:10] VITALS: BP 135/86; PULSE 128; RESP 19; TEMP 37.6; O2SAT 98
[2024-11-29 19:20] LABS: Coronavirus 19, PCR Not Detected (NotDetected); Human Rhinovirus Not Detected (NotDetected); Influenza A, PCR Not Detected (NotDetected); Influenza B, PCR Not Detected (NotDetected); Respiratory Syncytial Virus Not Detected (NotDetected)
[2024-11-29 19:22] LABS: Monoscreen (Rapid) Negative (Negative)
== END 2024-11-29 19:12 | disposition home or self-care (01) ==
PROVIDERS: Emergency Provider Nurse Practitioner; PCP Family Medicine
DX: B34.9 Viral infection, unspecified (principal)
CPT/HCPCS: 86318; 87631; 87804; 87880; 99213; G0381

== ENCOUNTER 2024-12-02 11:32 | Emergency (ER) | payer SELFPAY ==
--- NOTE | 2024-12-02 13:39 | PC.NURSE ---
called out for patient; no answer from the [facility] waiting room or lobby at this time
--- NOTE | 2024-12-02 13:44 | PC.NURSE ---
ANother call to the lobby and [facility] waiting room for patient; no answer.
[2024-12-02 14:07] VITALS: BP 0/0; PULSE 0; RESP 0; TEMP -17.7; TEMP 0
== END 2024-12-02 14:07 | disposition left against medical advice (07) ==
LOC: UTC 11:33
PROVIDERS: Emergency Provider Nurse Practitioner Family; PCP Family Medicine
DX: Z53.21 Procedure and treatment not carried out due to patient leaving prior to being seen by health care provider (principal)

== ENCOUNTER 2025-06-18 10:48 | Outpatient (CLI) | payer SELFPAY ==
--- OUTSIDE RECORDS SUMMARY | 2003-10-12 01:00 | XMS_ITS | Encounter Summary ---
Author Organization [facility] Address [address] [place] [id number] Care Team Providers Care Gis Administrator Name Role Phone Unavailable Primary Care Provider Unavailabl e Encounter Details Date Type Department Care Team (Late st Contact Info) Description 2003 Hospital Encounter [facility] Department of Radiology [address] [place] [phone] Social History Tobacco Use Types Packs/Day Years Used Date Smoking Tobacco: Never Assessed Comments Unknown Sex and Gender Information Value Date Recorded Sex Assigned at Not on file Legal Sex Female 5:15 AM EST Gender Identity Not on file Sexual Orientation Not on file documented as of this encounter Plan of Treatment Not on file documented as of this encounter Visit Diagnoses Not on filedocumented in this encounter
--- OUTSIDE RECORDS SUMMARY | 2003-11-09 01:00 | XMS_ITS | Encounter Summary ---
Author Organization [facility] Address [address] [place] [id number] Care Team Providers Care Stationary Plant Operators Name Role Phone Unavailable Primary Care Provider Unavailabl e Encounter Details Date Type Department Care Team (Late st Contact Info) Description 2003 Hospital Encounter [facility] Division of Audiology [address] [place] [phone] Social History Tobacco Use Types Packs/Day [...]
[2025-06-18 20:57] LABS: HCG Qualitative, Serum Negative (Negative)
--- OUTSIDE RECORDS SUMMARY | 2025-06-22 11:37 | XMS_ITS | Clinical Summary ---
Author Organization [facility] Address [address] [place] [address] Care Team Providers Care Product Distribution Specialist Name Role Phone Unavailable Primary Care Provider Unavailabl e Source Comments [facility] is fully rolled out with thefollowing exceptions:General Clinical Research [facility] Social History Tobacco Use Types Packs/Day Years Used Date Smoking Tobacco: Never Assessed Comments Unknown Sex and Gender Information Value Date Recorded Sex Assigned at Not on file Legal Sex Female 5:15 AM EST Gender Identity Not on file Sexual Orientation Not on file Plan of Treatment Health Maintenance Due Date Last Done Comments MMR IMMUNIZATION (1 of 1 - S tandard series) 2004 DTAP/Tdap/Td IMMUNIZATION (1 - Tdap) 2010 VARICELLA IMMUNIZATION (1 of 2 - 13+ 2-dose series) 2016 HPV IMMUNIZATION (1 - 3-dose series) 2018 MENINGOCOCCAL B VACCINE (1 o f 2 - Standard) 2019 HEPATITIS B IMMUNIZATION (1 of 3 - 19+ 3-dose series) 2022 COVID-19 Vaccine (1 - 2023-2 5 season) 2024 AMB SEASONAL FLU VACCINE (#1) 08/29/2025 HIB IMMUNIZATION Aged Out No longer e ligible based on patient's age to complete this topic IPV IMMUNIZATION Aged Out No longer e ligible based on patient's age to complete this topic MCV4 IMMUNIZATION Aged Out No longer eligible based on patient's age to complete this topic PNEUMOCOCCAL IMMUNIZATION Aged Out No longer eligible based on patient's age to complete this topic Respiratory Syncytial Virus (RSV) <20mo Aged Out No longer eligible b ased on patient's age to complete this topic
--- OUTSIDE RECORDS SUMMARY | 2025-06-22 11:37 | XMS_ITS | Clinical Summary ---
Author Organization Healthcare Address [address] [place] [address] Care Team Providers Care Pastry Decorator Name Role Phone Chris Keene MD Primary Care Provider [phone] Allergies No known active allergies Social History Tobacco Use Types Packs/Day Years Used Date Smoking Tobacco: Never Smokeless Tobacco: Never Tobacco Cessation:Counseling Given: Not Answered Alcohol Use Standard Drinks/Week Comments Never 0 (1 standard drink = 0.6 oz pur e alcohol) Comments Unknown Sex and Gender Information Value Date Recorded Sex Assigned at Not on file Legal Sex Female 9:16 AM EST Gender Identity Not on file Sexual Orientation Not on file Last Filed Vital Signs Vital Sign Reading Time Taken Comments Blood Pressure 130/79 05/21/2023 2:41 PM EDT Pulse 68 05/21/2023 2:41 PM EDT Temperature 36.6 C (97.8 F) 05/21/2023 2:41 PM EDT Respiratory Rate 15 05/21/2023 2:41 PM EDT Oxygen Saturation 98% 05/21/2023 2:41 PM EDT Inhaled Oxygen Concentration - - Weight 56.7 kg (125 lb) 05/21/2023 1:45 PM EDT Height 175.3 cm (5' 9 ) 11/21/2021 9:55 AM EST Body Mass Index 18.46 11/21/2021 9:55 AM EST Plan of Treatment Health Maintenance Due Date Last Done Comments [facility]-Depression Screening 2003 [facility]-HIV Screening 2003 [facility]-Hepatitis C Screening 2003 [facility]-Infant/Child/Adol SDOH Screenings 2003 [facility]- SDOH Screenings 2021 [facility]-Adult SDOH Screenings 2021 [facility]Z-ICBSU-30 Vaccine ( season) 2024 [facility]-Pap Smear 2024 [facility]-DTaP,Tdap,and Td Vaccines (7 - Td or Tdap) 04/09/2025 04/09/2015, 11/04/2007, 06/07/2005, Additional history exists [facility]-Influenza Vaccine (#1) 2025 [facility]-Zoster Vaccines (1 of 2) 2053 12/05/2017, 09/19/2004 [facility]-HIB Vaccines Completed 12/30/2004, , 2003 [facility]-Hepatitis B Vaccines Completed 005, 2003, 2003 [facility]-IPV Vaccines Completed 11/04/2007, 07/2005, 01/19/2004, Additional history exists HPV Vaccines Completed 12/05/2017, 0704/2017, 04/09/2015 [facility]-Varicella Vaccines Completed 12/05/2017, 2003 [facility]-Hepatitis A Vaccines Aged Out No longer eligible based on patient's age to complete this topic [facility]-Pneumococcal Vaccine: Pediatrics (0 to 5 Years) and At-Risk Patients (6 to 49 Years) Aged Out No longer eligible based on patient's age to complete this topic [facility]-Rotavirus Vaccines Aged Out No lo nger eligible based on patient's age to complete this topic Insurance [place] [employer] [id number] ANTH Care Teams Pastry Decorator Relationship Specialty Start Date End Date Chris Keene MD [address] [address] PCP - General 11/21/21
== END 2025-06-18 23:59 ==
LOC: LAB.DROPOF 06-22 10:54
PROVIDERS: PCP Student in an Organized Health Care Education/Training Program; Visit Provider Student in an Organized Health Care Education/Training Program
DX: N92.6 Irregular menstruation, unspecified (principal)
CPT/HCPCS: 84703

== ENCOUNTER 2025-10-08 10:05 | Outpatient (CLI) | payer BC, SELFPAY ==
[2025-10-08 14:57] LABS: Coronavirus 19, PCR Not Detected (NotDetected); Influenza A, PCR Not Detected (NotDetected); Influenza B, PCR Not Detected (NotDetected)
== END 2025-10-08 23:59 | disposition home or self-care (01) ==
LOC: LAB.DROPOF 10-09 14:05
PROVIDERS: PCP Family Medicine; Visit Provider Nurse Practitioner
DX: J06.9 Acute upper respiratory infection, unspecified (principal)
CPT/HCPCS: 87631

== ENCOUNTER 2025-10-12 11:38 | Emergency (ER) | payer BC, SELFPAY ==
[2025-10-12 11:39] VITALS: BP 131/79; PULSE 99; RESP 18; TEMP 37.3; O2SAT 99; BMI 24.7
--- NOTE | 2025-10-12 12:25 | ED_ITS ---
<Statement entered by Clark Field MD - 10/12/25 15:49> I was consulted by the MARKO, and we discussed the complexity of the problems being addressed. I approve the treatment and management plan for this patient's care in the emergency department, thus performing a substantive portion of the medical decision making. Clark Field MD Discharge Plan Disposition Chief Complaint: Headache Prescriptions Prescriptions: No Action No Known Home Medications Referrals Follow up/Referrals: Galen Duron MD [Primary Care Provider, Medical] - See instructions Print Language Print Language: Wallisian Discharge ED Provider: Clark Field General Adult HPI General Chief complaint: Headache Stated complaint: headache, fever, + strep Time Seen by Provider: 10/12/25 11:59 Mode of Arrival: Ambulatory Source of Information: Patient Description of Symptoms (Recalled from ER Triage Doc. by RN): PT REPORTS HEADACHE THAT STARTED YESTERDAY AM. SEEN IN THIS ED FOR STREP ON SUNDAY. CURRENTLY ON ABX. TOOK MEDICATION FOR H/A THIS AM. REPORTS FEVER History of Present Illness HPI narrative: 20-year-old female presents to the ED today for complaint of a headache that started yesterday morning. She was seen in the ED for strep on and is currently on antibiotics. She took the medicine for headache this morning and it did not work. She does report a fever yesterday of 103. She says she does have some neck pain as well. She says it hurts to move her head [id number] and down. She is able to move her head from [id number] and down says it just feels like it pulls her muscles in the back. She does say her throat still hurts a small bit but not much. Patient is alert and oriented x 4. She is not febrile here in the ED. She does have some muscle strain in her neck. Related Data Home Medications ?Medication ?Instructions ?Recorded ?Confirmed No Known Home Medications 11/29/2409/28 Allergies Allergy/AdvReac Type Severity Reaction Status Date / Time No Known Allergies Allergy Verified 10/12/25 10:18 [facility] Disclaimer: The information contained in this section may have been updated after the patient was seen, as this information can be updated by other users. Medical History Fever, unknown origin URI (upper respiratory infection) Strep throat Anxiety Surgical History History of tonsillectomy Social History Smoking Status: Never smoker alcohol intake: never current occupational status: student Travel in the last 8 weeks?: None household members: family housing: house Have you lived/traveled outside [place] in past 30 days?: No Contact w/someone who lives/traveled outside [place] past 30 days?: No Exposure to someone with infectious disease in past 14 days?: No Do you have a fever (greater than 100.4 F or 38 C)?: No Have you tested positive for COVID-19?: No Exposed to someone with COVID-19 in past 14 days?: No Do you have a sore throat?: No Do you have a cough?: No Do you have any weakness?: No Do you have any diarrhea?: No Are you experiencing any unusual bleeding?: No Do you have any muscle aches/pain?: No Do you have any abdominal pain?: No Are you experiencing loss of taste or smell?: No Other Medical History Have you received the Pneumonia Vaccine: No ROS Obtained: Yes Systems reviewed as appropriate & no additional complaints except as documented Constitutional Constitutional: Reports as per HPI Physical Exam General General appearance: alert and in no apparent distress Head Head exam: normocephalic Eye Eye exam: Present PERRL and EOMI ENT ENT exam: Present normal oropharynx (Mild erythema) and mucous membranes moist Neck Neck exam: Present normal inspection, full ROM, trachea midline and tenderness Respiratory Respiratory exam: Present normal lung sounds bilaterally Cardiovascular Cardiovascular exam: Present regular rate, normal rhythm, normal heart sounds, +S1 and +S2 Extremities Exam Extremities exam: Present full ROM and normal capillary refill Neurological Exam Neurological exam: Present alert and oriented X3 Skin Skin exam: Present warm and dry Medical Decision Making Medical Records Screening: Per USPSTF and CDC recommendations, given the prevalence of disease in our region, it is our hospital?s policy to screen for HIV and viral Hepatitis for all patients aged 18 and over and those with ongoing risk factors. Alexis Inquiry Pt receiving controlled substance: No Alexis was queried for this patient: No Vital Signs: 10/12/25 11:39 10/12/25 13:09 10/12/25 13:30 Temperature 99.1 F Temperature Source Oral Pulse Rate 74 78 Pulse Rate [Radial] 99 H Respiratory Rate 18 18 Blood Pressure 109/57 L 102/58 L Blood Pressure [Left Arm] 131/79 Blood Pressure Mean 74 Blood Pressure Mean [Left Arm] 96 Blood Pressure Source [Left Arm] Automatic Cuff Blood Pressure Position [Left Arm] Sitting 02 Sat by Pulse Oximetry 99 100 100 Oxygen Delivery Method Room Air Room Air Lab Data Lab Results 10/12/25 12:27: WBC 6.7, RBC 4.61, Hgb 14.4, Hct 41.6, MCV 90.2, MCH 31.2, MCHC 34.6, RDW 12.2, Plt Count 216, MPV 8.9, Neut % (Auto) 71.7, Lymph % (Auto) 22.1, [place] % (Auto) 5.5, Eos % (Auto) 0.3, Baso % (Auto) 0.1, Neut # (Auto) 4.8, Lymph # (Auto) 1.5, [place] # (Auto) 0.4, Eos # (Auto) 0.0, Baso # (Auto) 0.0, ESR 15, Sodium 138, Potassium 3.8, Chloride 103, Carbon Dioxide 24, Anion Gap 14.8, BUN 13, Creatinine 0.80, Estimated Creat Clear 136, Estimated GFR 90, Est GFR ( Amer) 109, Glucose 101 H, Calcium 9.9, Magnesium 2.0, Total Bilirubin 0.9, AST 25, ALT 19, Alkaline Phosphatase 51, C-Reactive Protein 4.7 H, Total Protein 8.1, Albumin 5.0, Globulin 3.1, Albumin/Globulin Ratio 1.6, Serum HCG, Qual Negative, HIV Ag/Ab Combo Qual Negative 10/12/25 12:27 10/12/25 12:27 Orders (Tests/Meds): ED MEDICATIONS Generic Name Dose Route Start Last Admin Trade Name Freq PRN Reason Stop Dose Admin Sodium Chloride 2,340 mls @ 1,170 mls/hr 10/12/25 12:25 Sod Chlor 0.9% 1000ml Bag 30 ml/kg infuse over 2 hr (2340 ml) 10/12/25 14:24 IV .Q2H ONE Protocol Discontinued Medications Generic Name Dose Route Start Last Admin Trade Name Freq PRN Reason Stop Dose Admin Acetaminophen 1,000 mg 10/12/25 12:15 10/12/25 13:04 Acetaminophen 1,000mg/100ml Vial IV 10/12/25 12:16 1,000 mg ONCE ONE Administration Dexamethasone Sodium Phosphate 8 mg 10/12/25 12:15 10/12/25 13:04 Dexamethasone 4mg/Ml 1ml Vial IV 10/12/25 12:16 8 mg ONCE ONE Administration Diphenhydramine HCl 25 mg 10/12/25 12:15 10/12/25 13:05 Diphenhydramine 50mg/Ml Vial IV 10/12/25 12:16 25 mg ONCE ONE Administration Sodium Chloride 1,000 mls @ 999 mls/hr 10/12/25 12:10 10/12/25 13:04 Sod Chlor 0.9% 1000ml Bag IV 10/12/25 13:10 999 mls/hr .Q1H1M ONE Administration Ketorolac Tromethamine 30 mg 10/12/25 12:15 10/12/25 13:28 Ketorolac 30mg/Ml Vial IV 10/12/25 12:16 30 mg ONCE ONE Administration Prochlorperazine Edisylate 5 mg 10/12/25 12:15 10/12/25 13:05 Prochlorperazine 10mg/2ml Vial IV 10/12/25 12:16 5 mg ONCE ONE Administration ORDERS Category Date Time Status CBC [Complete Blood Count Auto Diff] Stat Lab 10/12/25 12:27 Completed CRP [C-Reactive Protein] Stat Lab 10/12/25 12:27 Completed Comprehensive Metabolic Panel Stat Lab 10/12/25 12:27 Completed ESR [Erythrocyte Sedimentation Rate] Stat Lab 10/12/25 12:27 Completed HIV Combo Stat Lab 10/12/25 12:27 Completed Hepatitis C Ab Qual. W/ RFX Stat Lab 10/12/25 12:27 Received Magnesium Stat Lab 10/12/25 12:27 Completed Rapid PCR Covid and Flu A/B Stat Lab 10/12/25 12:27 Received Serum [HCG Qualitative, Serum] Stat Lab 10/12/25 12:27 Completed Medical Decision Narrative: patient is a 20-year-old female presenting to the emergency department for evaluation of headache that started yesterday patient is concerned for her neck pain as well. Patient did have a fever but she has no fever here. Patient is hemodynamically stable and nontoxic-appearing upon arrival, afebrile. Differential diagnosis includes bacterial infection, viral illness, meningitis, among others. Workup will be conducted with hematologic labs, specific imaging, provocative tests. Initial inventions include crystalloid bolus, analgesics, antibiotics. Initial workup reviewed by ar hematologic labs are remarkable for White cell count of 6.7, normal H&H, normal electrolytes normal liver and kidney. Patient shows no indication infectious cause due to her headache. Patient's headache is improved. Patient is safe for discharge home. Critical Care Critical Care Time Critical Care Time: No
[2025-10-12 12:41] LABS: Hematocrit 41.6 % (37.0-47.0); Hemoglobin 14.4 g/dL (12.2-16.2); Immature Granulocytes % 0.3 %; Mean Corpuscular HGB Conc 34.6 g/dL (31.8-35.4); Mean Corpuscular Hemoglobin 31.2 pg (27.0-31.2); Mean Corpuscular Volume 90.2 fl (81-99); Nucleated Red Blood Cells % 0 %; Platelet Count 216 K/mm3 (142-424); Red Blood Count 4.61 M/mm3 (4.20-5.40); Red Cell Distribution Width-SD 40.2 fL; White Blood Count 6.7 K/mm3 (4.8-10.8)
[2025-10-12 12:48] LABS: Magnesium 2.0 mg/dl (1.6-2.3)
[2025-10-12 12:51] LABS: Alanine Aminotransferase 19 U/L (12-78); Albumin Level 5.0 g/dl (3.5-5.0); Albumin/Globulin Ratio 1.6 (1.1-1.8); Alkaline Phosphatase 51 U/L (38-126); Anion Gap 14.8 mEq/L (5-15); Aspartate Amino Transferase 25 U/L (14-36); Bilirubin,Total 0.9 mg/dl (0.2-1.3); Blood Urea Nitrogen 13 mg/dl (7-17); Calcium 9.9 mg/dl (8.4-10.2); Carbon Dioxide 24 mmol/L (22.0-30.0); Chloride 103 mmol/L (98-107); Creatinine Clearance Estimated 136 mL/min (50-200); Creatinine,Serum 0.80 mg/dl (0.52-1.04); Estimated Glomerular Filt Rate 90 ml/min (>60); GFR (African American) 109 ML/MIN (>60); Globulin 3.1 g/dL (1.3-3.2); Glucose 101 mg/dl (74-100); Potassium 3.8 mmoL/L (3.5-5.1); Sodium 138 mmol/L (136-145); Total Protein,Serum 8.1 g/dl (6.3-8.2)
[2025-10-12 12:53] LABS: C-Reactive Protein 4.7 mg/L (0-4)
[2025-10-12] MEDS: 0.9 % SODIUM CHLORIDE 1000ML 1,000 ML 999 ML IV (13:04)
[2025-10-12] MEDS: DEXAMETHASONE 4MG/ML 1ML VIAL 8 MG IV (13:04)
[2025-10-12] MEDS: ACETAMINOPHEN 1,000MG/100ML VIAL 1000 MG IV (13:04)
[2025-10-12] MEDS: PROCHLORPERAZINE 10MG/2ML VIAL 5 MG IV (13:05)
[2025-10-12 13:09] VITALS: BP 109/57; PULSE 74; RESP 18; O2SAT 100
[2025-10-12 13:09] LABS: HCG Qualitative, Serum Negative (Negative)
[2025-10-12] MEDS: KETOROLAC 30MG/ML VIAL 30 MG IV (13:28)
[2025-10-12 13:30] VITALS: BP 102/58; PULSE 78; O2SAT 100
[2025-10-12 13:37] LABS: Coronavirus 19, PCR Not Detected (NotDetected); Influenza A, PCR Not Detected (NotDetected); Influenza B, PCR Not Detected (NotDetected)
[2025-10-12 14:00] VITALS: BP 90/51; PULSE 64; RESP 16; O2SAT 99
[2025-10-12 14:12] VITALS: BP 90/51; PULSE 64; RESP 16; TEMP 37.1; O2SAT 99
[2025-10-12 21:46] LABS: Hepatitis C Ab Qual. W/ RFX NEGATIVE (Negative)
== END 2025-10-12 14:20 | disposition home or self-care (01) ==
PROVIDERS: Nurse Practitioner; Emergency Provider Student in an Organized Health Care Education/Training Program; PCP Family Medicine
DX: R51.9 Headache, unspecified (principal); M54.2 Cervicalgia
CPT/HCPCS: 80053; 83735; 84703; 85025; 85651; 86140; 86803; 87389; 87636; 96361; 96365; 96375; 99285; J0131; J0780; J1100; J1200; J1885; J7030